=== PATIENT | female | born 1990 | race Hispanic/Latino ===

== ENCOUNTER 2018-05-27 14:54 | Emergency (ER) | payer BC, OTHER ==
[2018-05-27] MEDS ORDERED: DEXAMETHASONE SOD PHOSPHATE 10MG/ML 1ML VIAL ONE (15:32)
== END 2018-05-27 15:47 | disposition home or self-care (01) ==
LOC: EDH 14:54
DX: M25.562 Pain in left knee (principal); X50.0XXA Overexertion from strenuous movement or load, initial encounter; Y93.B2 Activity, push-ups, pull-ups, sit-ups; Y92.39 Other specified sports and athletic area as the place of occurrence of the external cause; Y99.8 Other external cause status
CPT/HCPCS: 73562 ×2; 96372; 99284; J1100

== ENCOUNTER → 2019-02-07 | Outpatient (CLI) | payer BC | END | disposition home or self-care (01) | LOC: RAH 01-25 09:53 | PROVIDERS: ATTEND Family Medicine | DX: I08.8 Other rheumatic multiple valve diseases (principal) | CPT/HCPCS: 93306 ==

== ENCOUNTER 2021-02-07 07:33 | Emergency (ER) | payer BC, OTHER ==
[~2021-02-07] VITALS: Ht 157.5 cm; Wt 66.2 kg
[2021-02-07 08:42] VITALS: BP 128/85
== END 2021-02-07 09:16 | disposition home or self-care (01) ==
LOC: EDH 07:33
DX: J06.9 Acute upper respiratory infection, unspecified (principal); Z20.822 Contact with and (suspected) exposure to COVID-19
CPT/HCPCS: 71045; 87635; 87804 ×2; 93005; 99285; C9803

== ENCOUNTER 2025-01-02 22:02 | Emergency (ER) | payer OTHER, BC ==
[2025-01-02 22:09] VITALS: TEMP 98.1
--- NOTE | 2025-01-02 22:13 | NUR ---
C-COLLAR REMOVED BY ER PHYSICIAN DR FOY
[2025-01-02] MEDS ORDERED: ibuPROFEN 600 MG TABLET PO ONE (22:30)
[2025-01-02] MEDS: acetaMINOPHEN 500 MG TABLET PO ONE (23:29)
[2025-01-02] MEDS: ketOROlac 15MG/ML VIAL (15MG/ML) IV ONE (23:30)
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
[2025-01-02] MEDS ORDERED: MELO-108 PO (23:55)
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
[2025-01-02 23:59] VITALS: BP 114/76; PULSE 89; RESP 18; O2SAT 99
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
== END 2025-01-03 00:16 | disposition home or self-care (01) ==
LOC: EDH 22:02
DX: S13.4XXA Sprain of ligaments of cervical spine, initial encounter (principal); V89.2XXA Person injured in unspecified motor-vehicle accident, traffic, initial encounter; Y93.89 Activity, other specified; Y92.89 Other specified places as the place of occurrence of the external cause; Y99.8 Other external cause status
CPT/HCPCS: 99285; 96374; 72125; 81025; J1885